=== PATIENT | female | born 1970 | race Caucasian/White ===

== ENCOUNTER 2021-09-27 14:57 | Outpatient (CLI) | payer OTHER, SELFPAY ==
[2021-09-27 16:30] LABS: Anion Gap 12 mmol/L (8-16); Blood Urea Nitrogen 17 mg/dL (7-17); Calcium 9.6 mg/dL (8.4-10.2); Carbon Dioxide 27 mmol/L (22-30); Chloride 99 mmol/L (98-107); Estimated Glomerular Filt Rate > 60; Glucose 412 mg/dL (65-110); Potassium 4.6 mmol/L (3.4-5.0); Sodium 138 mmol/L (137-145)
[2021-09-27 16:46] LABS: Free T4 Free Thyroxine 1.03 ng/mL (0.78-2.19); LDL Cholesterol Direct 103 mg/dL
== END 2021-09-27 14:58 | disposition home or self-care (01) ==
LOC: ANHWCLAB 14:59
PROVIDERS: Visit Provider Internal Medicine Endocrinology, Diabetes & Metabolism
DX: E10.65 Type 1 diabetes mellitus with hyperglycemia (principal); E03.9 Hypothyroidism, unspecified
CPT/HCPCS: 36415; 80048; 83721; 84439; 84443